=== PATIENT | male | born 1995 | race Caucasian/White ===

== ENCOUNTER 2020-06-30 03:50 | Emergency (ER) | payer MEDICAID ==
[~2020-06-30] VITALS: Ht 177.8 cm; Wt 132.4 kg
[2020-06-30] MEDS ORDERED: LAMOTRIGINE PO (04:04)
[2020-06-30] MEDS ORDERED: FLEXERIL PO (04:25)
[2020-06-30] MEDS ORDERED: LORCET 5-325 M1 EACH PO (04:25)
[2020-06-30 04:34] VITALS: BP 139/85
== END 2020-06-30 04:36 | disposition home or self-care (01) ==
LOC: M.ERS 03:50
DX: M79.662 Pain in left lower leg (principal)